=== PATIENT | male | born 1960 | race Caucasian/White ===

== ENCOUNTER 2017-04-05 14:20 | Inpatient (IN) ==
--- NOTE | 2017-04-05 15:08 | Emergency Department Note ---
Disposition Clinical Impression: Iron deficiency, Thrombocytopenia, Hyperglycemia Fatigue Qualifiers: Fatigue type: unspecified Qualified Code(s): R53.83 - Other fatigue Anemia Qualifiers: Anemia type: unspecified type Qualified Code(s): D64.9 - Anemia, unspecified Disposition: Admitted As Inpatient Condition: Fair Referrals: Bin Morales MD [Primary Care Provider] - Forms: ED Satisfaction Letter General Adult HPI - General Chief complaint: ED Recheck/Abnormal Lab/Rx Stated complaint: Low hemoglobin Time Seen by Provider: 04/05/17 14:39 Source: patient Limitations: no limitations, language barrier Nursing Notes Reviewed: Yes Vital Signs Reviewed: Yes - History of Present Illness HPI Narrative: 57 y/o male who reports fatigue over the last 1-2 weeks. Went to see his PCP today who yazmin labwork and sent him here due to low hemoglobin. He has a history of esophageal varices requiring a clip a couple of months ago up at [place]. He admits to dark stools which have worsened significantly over the last 2 days. No gross blood in his stool. He says he might be on a blood thinner but does not know for sure. He was unfamiliar with the blood thinners I listed. His outpatient clinic notes do not mention a blood thinner. Other medical problems include liver cirrhosis and HTN and DM. Denies fever. Denies CP/abd pain. He reports drinking up to half a gallon of vodka daily. Radiation: non-radiation Pain Scale: 0 Consistency: constant Improves with: nothing Worsens with: nothing Associated symptoms: Reports: denies other symptoms Treatments Prior to Arrival: none - Related Data Home Medications Medication Instructions Recorded Confirmed Buspirone HCl [Buspar] 15 mg PO DAILY 09/15/15 12/29/15 Cyclobenzaprine HCl 5 mg PO BID 09/15/15 12/29/15 Gabapentin [Neurontin] 300 mg PO TID 09/15/15 12/29/15 Insulin Glargine,Hum.rec.anlog 60 units SQ BID 09/15/15 12/29/15 [[place] Solostar] Lisinopril [Zestril] 40 mg PO BID 09/15/15 12/29/15 Multivitamin [Multi-Day Vitamins] 1 tab PO DAILY 09/15/15 12/29/15 Omeprazole 20 mg PO DAILY 09/15/15 12/29/15 Simvastatin [Zocor] 20 mg PO HS 09/15/15 12/29/15 amLODIPine [Norvasc] 5 mg PO DAILY 09/15/15 12/29/15 Isosorbide MONOnitrate (24 HR) 15 mg PO DAILY 12/29/15 12/29/15 [Imdur] Metoprolol XL (24 HR) Succ [Toprol 25 mg PO BID 12/29/15 12/29/15 XL] Furosemide [Lasix] 40 mg PO DAILY 04/05/17 04/05/17 Insulin Glargine [Lantus] 75 unit SQ HS 04/05/17 04/05/17 Allergies Allergy/AdvReac Type Severity Reaction Status Date / Time No Known Allergies Allergy Verified 04/05/17 14:25 All systems ED: reviewed and negative except as stated. Constitutional: Denies: fever ENT ED: Denies: throat pain Cardiovascular: Denies: chest pain Respiratory: Denies: cough Gastrointestinal: Denies: abdominal pain Musculoskeletal: Denies: back pain Integumentary: Denies: rash Neurological: Denies: headache Endocrine: Reports: fatigue Past Medical History - Past Medical History Medical history: Reports: cirrhosis, diabetes, GERD, hyperlipidemia, hypertension, liver disease Surgical history: Reports: cholecystectomy, orthopedic, other Psychiatric history: Reports: anxiety, depression - Social History Smoking Status: Never smoker Smokeless Tobacco Status: Yes (occasionally) Alcohol use: Reports: occasionally, heavy Drug use: Reports: none Physical Exam - General Limitations: no limitations, language barrier General appearance: alert, in no apparent distress - Head Head exam: atraumatic - Eye Eye exam: Present: normal appearance, PERRL - ENT ENT exam: normal exam, normal oropharynx - Neck Neck exam: Present: normal inspection - Chest Chest inspection: Present: normal inspection - Respiratory Respiratory exam: Present: normal lung sounds bilaterally. Absent: respiratory distress - Cardiovascular Cardiovascular exam: Present: regular rate, normal rhythm - Abdominal Exam Abdominal exam: Present: soft, Non-Tender - Extremities Exam Extremities exam: Present: normal inspection - Neurological Exam Neurological exam: Present: alert, oriented X3 - Psychiatric Psychiatric exam: Present: normal affect, normal mood - Skin Skin exam: Present: warm, dry Course Course Narrative: Rectal exam had no stool in the rectal vault. Nontender. No gross blood on exam. Will recheck labs. Vitals are stable. Stool occult is negative. May still be due to GI bleed as there was no stool in the vault to check. Minimal substance on glove after rectal exam. No evidence of DKA. Vitals are stable. Starting blood transfusion. Starting insulin drip due to marked hyperglycemia. Spoke with endoscopy (Dr Moreira) who agreed to see the patient. Vital Signs Temperature 98.0 F 04/05/17 14:22 Pulse Rate 93 04/05/17 14:22 Respiratory Rate 16 04/05/17 14:22 Blood Pressure 135/73 04/05/17 14:22 O2 Sat by Pulse Oximetry 95 04/05/17 14:22 Temperature 98.0 F 04/05/17 14:22 Pulse Rate 80 04/05/17 15:21 Respiratory Rate 16 04/05/17 15:21 Blood Pressure 101/62 04/05/17 15:21 O2 Sat by Pulse Oximetry 99 04/05/17 15:21 Oxygen Delivery Oxygen Delivery Room Air Medical Decision Making - Medical Records Medical records reviewed: Yes I reviewed the patient's medical records. - Lab Data Lab results reviewed: Yes I reviewed the patient's lab results. Result diagrams: 04/05/17 15:13 04/05/17 15:13 Lab Results 04/05/17 04/05/17 04/05/17 Range/Units 15:13 15:13 15:13 WBC 3.3 L (4.3-11.1) K/mcL RBC 2.15 L (4.19-5.50) M/mcL Hgb 5.9 L* (12.9-16.9) g/dL Hct 18.4 L (37.5-50.1) % MCV 85.6 (83.0-100.0) fL MCH 27.4 L (28.0-33.3) pg MCHC 32.1 (31.6-35.5) g/dL RDW 18.4 H (11.5-14.5) % Plt Count 67 L (140-400) K/mcL MPV 12.4 (9.4-12.4) fL Immature Gran % 0.3 (0-4) % Seg Neutrophils % 62.2 % Lymphocytes % 24.8 % Monocytes % 11.5 % Eosinophils % 0.9 % Basophils % 0.3 % Neutrophils # 2.1 (1.6-8.9) K/mcL Lymphocytes # 0.8 (0.6-4.6) K/mcL Monocytes # 0.4 (0.0-1.3) K/mcL Eosinophils # 0.0 (0.0-0.6) K/mcL Basophils # 0.0 (0.0-0.2) K/mcL Platelet Estimate Marked Decrease L (Normal) Immature Plt Fraction 8.8 H (1.1-6.1) % Hypochromasia Present A (Not Present) Anisocytosis 1+ A (Not Present) PT 13.7 H (9.4-12.1) Seconds INR 1.3 APTT 28.9 (26.0-36.0) Seconds VBG pH (7.32-7.42) pH Units VBG pCO2 (41-51) mmHg VBG pO2 (25-50) mmHg VBG HCO3 (21-27) mEq/L Sodium 126 L (136-145) mEq/L Potassium 4.9 H (3.5-4.5) mEq/L Chloride 96 L (98-109) mEq/L Carbon Dioxide 20 (19-29) mEq/L BUN 27 H (8-26) mg/dL Creatinine 1.76 H (0.72-1.25) mg/dL Est GFR ( Amer) 48 L (> 60) Est GFR (Non-Af Amer) 40 L (> 60) BUN/Creatinine Ratio 15 (6-26) Glucose 735 H* (70-99) mg/dL Calculated Osmolality 302 H (280-300) Calcium 8.3 L (8.6-10.8) mg/dL Total Bilirubin 0.7 (0.2-1.2) mg/dL Direct Bilirubin 0.3 (0.0-0.5) mg/dL Indirect Bilirubin 0.4 (0.0-1.2) mg/dL AST 24 (5-34) Units/L ALT 41 (0-55) Units/L Alkaline Phosphatase 264 H (38-126) Units/L Troponin I (0-0.03) ng/mL Serum Total Protein 6.3 (6.0-8.3) g/dL Albumin 2.4 L (3.5-5.0) g/dL Globulin 3.9 H (2.4-3.5) g/dL Albumin/Globulin Ratio 0.6 L (1.1-2.2) Beta-Hydroxybutyric Acd (0.02-0.27) mmol/L Stool Occult Blood (Negative) Ethyl Alcohol (0-10) mg/dL Blood Type Antibody Screen Crossmatch 04/05/17 04/05/17 04/05/17 Range/Units 15:13 15:13 15:42 WBC (4.3-11.1) K/mcL RBC (4.19-5.50) M/mcL Hgb (12.9-16.9) g/dL Hct (37.5-50.1) % MCV (83.0-100.0) fL MCH (28.0-33.3) pg MCHC (31.6-35.5) g/dL RDW (11.5-14.5) % Plt Count (140-400) K/mcL MPV (9.4-12.4) fL Immature Gran % (0-4) % Seg Neutrophils % % Lymphocytes % % Monocytes % % Eosinophils % % Basophils % % Neutrophils # (1.6-8.9) K/mcL Lymphocytes # (0.6-4.6) K/mcL Monocytes # (0.0-1.3) K/mcL Eosinophils # (0.0-0.6) K/mcL Basophils # (0.0-0.2) K/mcL Platelet Estimate (Normal) Immature Plt Fraction (1.1-6.1) % Hypochromasia (Not Present) Anisocytosis (Not Present) PT (9.4-12.1) Seconds INR APTT (26.0-36.0) Seconds VBG pH (7.32-7.42) pH Units VBG pCO2 (41-51) mmHg VBG pO2 (25-50) mmHg VBG HCO3 (21-27) mEq/L Sodium (136-145) mEq/L Potassium (3.5-4.5) mEq/L Chloride (98-109) mEq/L Carbon Dioxide (19-29) mEq/L BUN (8-26) mg/dL Creatinine (0.72-1.25) mg/dL Est GFR ( Amer) (> 60) Est GFR (Non-Af Amer) (> 60) BUN/Creatinine Ratio (6-26) Glucose (70-99) mg/dL Calculated Osmolality (280-300) Calcium (8.6-10.8) mg/dL Total Bilirubin (0.2-1.2) mg/dL Direct Bilirubin (0.0-0.5) mg/dL Indirect Bilirubin (0.0-1.2) mg/dL AST (5-34) Units/L ALT (0-55) Units/L Alkaline Phosphatase (38-126) Units/L Troponin I 0.03 (0-0.03) ng/mL Serum Total Protein (6.0-8.3) g/dL Albumin (3.5-5.0) g/dL Globulin (2.4-3.5) g/dL Albumin/Globulin Ratio (1.1-2.2) Beta-Hydroxybutyric Acd (0.02-0.27) mmol/L Stool Occult Blood Negative (Negative) Ethyl Alcohol (0-10) mg/dL Blood Type O POSITIVE Antibody Screen NEGATIVE Crossmatch See Detail 04/05/17 04/05/17 Range/Units 16:06 16:21 WBC (4.3-11.1) K/mcL RBC (4.19-5.50) M/mcL Hgb (12.9-16.9) g/dL Hct (37.5-50.1) % MCV (83.0-100.0) fL MCH (28.0-33.3) pg MCHC (31.6-35.5) g/dL RDW (11.5-14.5) % Plt Count (140-400) K/mcL MPV (9.4-12.4) fL Immature Gran % (0-4) % Seg Neutrophils % % Lymphocytes % % Monocytes % % Eosinophils % % Basophils % % Neutrophils # (1.6-8.9) K/mcL Lymphocytes # (0.6-4.6) K/mcL Monocytes # (0.0-1.3) K/mcL Eosinophils # (0.0-0.6) K/mcL Basophils # (0.0-0.2) K/mcL Platelet Estimate (Normal) Immature Plt Fraction (1.1-6.1) % Hypochromasia (Not Present) Anisocytosis (Not Present) PT (9.4-12.1) Seconds INR APTT (26.0-36.0) Seconds VBG pH 7.38 (7.32-7.42) pH Units VBG pCO2 41 (41-51) mmHg VBG pO2 52 H (25-50) mmHg VBG HCO3 24 (21-27) mEq/L Sodium (136-145) mEq/L Potassium (3.5-4.5) mEq/L Chloride (98-109) mEq/L Carbon Dioxide (19-29) mEq/L BUN (8-26) mg/dL Creatinine (0.72-1.25) mg/dL Est GFR ( Amer) (> 60) Est GFR (Non-Af Amer) (> 60) BUN/Creatinine Ratio (6-26) Glucose (70-99) mg/dL Calculated Osmolality (280-300) Calcium (8.6-10.8) mg/dL Total Bilirubin (0.2-1.2) mg/dL Direct Bilirubin (0.0-0.5) mg/dL Indirect Bilirubin (0.0-1.2) mg/dL AST (5-34) Units/L ALT (0-55) Units/L Alkaline Phosphatase (38-126) Units/L Troponin I (0-0.03) ng/mL Serum Total Protein (6.0-8.3) g/dL Albumin (3.5-5.0) g/dL Globulin (2.4-3.5) g/dL Albumin/Globulin Ratio (1.1-2.2) Beta-Hydroxybutyric Acd 0.20 (0.02-0.27) mmol/L Stool Occult Blood (Negative) Ethyl Alcohol < 10 (0-10) mg/dL Blood Type Antibody Screen Crossmatch - EKG Data EKG #1 EKG attestation: Yes I reviewed and interpreted this EKG. EKG shows normal: sinus rhythm Rate: normal Rhythm: NSR [place]/QRS: left axis deviation When compared to previous EKG there are: no significant changes Interpretation: no acute changes
[2017-04-05 15:21] LABS: Basophils % 0.3 %; Eosinophils % 0.9 %; Hematocrit 18.4 % (37.5-50.1); Immature Granulocytes % 0.3 % (0-4); Immature Platelets 8.8 % (1.1-6.1); Lymphocytes # 0.8 K/mcL (0.6-4.6); Lymphocytes % 24.8 %; Mean Corpuscular HGB Conc 32.1 g/dL (31.6-35.5); Mean Corpuscular Hemoglobin 27.4 pg (28.0-33.3); Mean Corpuscular Volume 85.6 fL (83.0-100.0); Mean Platelet Volume 12.4 fL (9.4-12.4); Monocytes # 0.4 K/mcL (0.0-1.3); Monocytes % 11.5 %; Neutrophils # 2.1 K/mcL (1.6-8.9); Red Blood Count 2.15 M/mcL (4.19-5.50); Red Cell Distribution Width 18.4 % (11.5-14.5); Segmented Neutrophils % 62.2 %
[2017-04-05 15:25] LABS: INR 1.3; Prothrombin Time 13.7 Seconds (9.4-12.1)
[2017-04-05 15:28] LABS: Activated Partial Thrombo Time 28.9 Seconds (26.0-36.0)
[2017-04-05 15:33] LABS: Albumin 2.4 g/dL (3.5-5.0); Albumin/Globulin Ratio 0.6 (1.1-2.2); Bilirubin,Direct 0.3 mg/dL (0.0-0.5); Bilirubin,Indirect 0.4 mg/dL (0.0-1.2); Bilirubin,Total 0.7 mg/dL (0.2-1.2); Calcium 8.3 mg/dL (8.6-10.8); Globulin 3.9 g/dL (2.4-3.5); Potassium 4.9 mEq/L (3.5-4.5); Total Protein 6.3 g/dL (6.0-8.3)
[2017-04-05] MEDS ORDERED: 0.9 % Sodium Chloride 1,000 ML IVC ONE (15:39)
[2017-04-05] MEDS: Iron Polysaccharide Complex 150 MG CAPSULE PO SCH (15:45)
[2017-04-05] MEDS ORDERED: *HR* Dextrose 50 % in Water (Syg) 50 ML SYRINGE IVP PRN (15:55)
[2017-04-05] MEDS ORDERED: Pantoprazole 80 MG in Water for inj. (sterile) 10 ML IVP ONE (15:57)
[2017-04-05 15:58] LABS: Hemoglobin 5.9 g/dL (12.9-16.9)
[2017-04-05 15:59] LABS: Platelet Count 67 K/mcL (140-400)
[2017-04-05] MEDS ORDERED: 0.9 % Sodium Chloride 1,000 ML IVC SCH (16:00)
[2017-04-05 16:01] LABS: Platelet Estimate Marked Decrease (Normal)
[2017-04-05 16:02] LABS: Anisocytosis 1+ (Not Present); Hypochromasia Present (Not Present)
--- NOTE | 2017-04-05 16:02 | Emergency Department Note ---
START Narrative - START START: I examined this patient and my medical decision-making was reviewed with the Resident Physician. I agree with the documented findings, disposition and treatment plan as described except to the extent set forth below. 57-year-old male presents to the emergency room for weakness, melena. Patient' s sugar was found to be greater than 700. He states his stools have been intermittently dark in color. He has a history of esophageal varices. He has a known drinker that drinks about twice per week. He said a previous clipping or banding of these esophageal varices in the past at [place]. He denies any significant abdominal pain. He states he just feels weak. He denies any alcohol today. Patient will be started on insulin drip and IV fluids for the elevated sugar as well. Critical care time of 35 minutes spent in medical resuscitation and management of GI bleed as well as hyperglycemia requiring insulin drip
[2017-04-05 16:24] LABS: VBG HCO3 24 mEq/L (21-27); VBG PCO2 41 mmHg (41-51); VBG PH 7.38 pH Units (7.32-7.42); VBG PO2 52 mmHg (25-50)
[2017-04-05 16:40] LABS: Ethanol < 10 mg/dL (0-10)
[2017-04-05] MEDS ORDERED: 0.9 % Sodium Chloride 250 ML ONE (17:07)
[2017-04-05] MEDS ORDERED: Polyethylene Glycol 3350 255 GM POWDER PO ONE (17:35)
--- NOTE | 2017-04-05 18:39 | General Surgery Consult Note ---
Date of Encounter: 04/05/17 Time of Encounter: 18:29 Assessment and Plan (1) Lower GI bleed Current Visit: Yes Status: Acute unknow if from UGI or LGI source. Patient does have a history of varices, grade I and also has a history of endoscopic control of bleeding; He may also have another source (gastritis, PUD) or a LGI source (diverticulosis, angiodysplasia, polyps) - CLD, NPO at midnight - bowel prep - resuscitate - trend h/h - transfuse as needed - will plan for EGD, colonoscopy in AM History of Present Illness Consult date: 04/05/17 Reason for consult: other (lower GI bleeding) History of present illness: 57M with known EtOH history (1 gallon of vodka per week) with prior episodes of LGIB most recent was ~ 6-12 months ago where he did undergo endoscopic treatment for bleeding, likely of varices. He presents with weakness, lightheadedness and anemia on h/h. The patient states that he has been having lower GI bleeding for about 2 weeks. His last episode was one day prior to evaluation. Due to the severity of his h/h he came to the ED for evaluation. Of note his last colonoscopy was about 2 years ago. patient states that there were polyps which were removed, but no other concerning findings. No reports of hematemesis. Past Med Surg Social Fam HX - Past Medical History Medical history: cirrhosis, diabetes, GERD, hyperlipidemia, hypertension, liver disease Psychiatric history: anxiety, depression - Past Surgical History Surgical History: cholecystectomy, orthopedic, other - Social History Smoking Status: Never smoker Smokeless Tobacco Status: Yes (occasionally) Alcohol use: occasionally, heavy Drug use: none - Family History Father Living Status: Hx Family Cardiac Disorders: Yes (hypertension) Mother Living Status: Medications and Allergies Buspirone HCl [Buspar] 15 mg PO DAILY 09/15/15 [History] Cyclobenzaprine HCl 5 mg PO BID 09/15/15 [History] Gabapentin [Neurontin] 300 mg PO DAILY 09/15/15 [History] Insulin Glargine,Hum.rec.anlog [[place] Solostar] 30 units SQ BID 09/15/15 [ History] Lisinopril [Zestril] 40 mg PO BID 09/15/15 [History] Multivitamin [Multi-Day Vitamins] 1 tab PO DAILY 09/15/15 [History] Omeprazole 20 mg PO DAILY 09/15/15 [History] Simvastatin [Zocor] 20 mg PO HS 09/15/15 [History] amLODIPine [Norvasc] 5 mg PO DAILY 09/15/15 [History] Isosorbide MONOnitrate (24 HR) [Imdur] 15 mg PO DAILY 12/29/15 [History] Metoprolol XL (24 HR) Succ [Toprol XL] 25 mg PO BID 12/29/15 [History] Furosemide [Lasix] 40 mg PO DAILY 04/05/17 [History] Insulin Glargine [Lantus] 75 unit SQ HS 04/05/17 [History] 3 Allergy/AdvReac Type Severity Reaction Status Date / Time No Known Allergies Allergy Verified 04/05/17 14:25 Review of Systems All systems PM: A 10-system review of systems was performed and is negative for pertinent findings except as documented above in the HPI. General Surgery Exam Initial Vital Signs Temp Pulse Resp BP Pulse Ox 98.0 F 93 16 135/73 95 04/05/17 14:22 04/05/17 14:22 04/05/17 14:22 04/05/17 14:22 04/05/17 14:22 - General physical appearance well developed, well nourished, no distress - Eyes normal ocular movement - ENT normocephalic - Neck no lymphadectomy - Respiratory normal expansion, normal respiratory effort - Cardiovascular Cardiovascular exam: Present: RRR - Abdomen Abdomen general surgery: Present: soft, non tender - Rectum Rectum: Present: normal sphincter tone, no bleeding - Integumentary Integumentary general surgery: Present: warm and dry - Neurologic Present: CN 2-12 grossly intact - Musculoskeletal Present: other (FROM in UE/LE bilaterally) - Psychiatric Psychiatric general surgery: Present: A&Ox3 Exam Initial Vital Signs Temp Pulse Resp BP Pulse Ox 98.0 F 93 16 135/73 95 04/05/17 14:22 04/05/17 14:22 04/05/17 14:22 04/05/17 14:22 04/05/17 14:22 Results - Labs 04/05/17 15:13 04/05/17 15:13 Abnormal lab results WBC 3.3 K/mcL (4.3-11.1) L 04/05/17 15:13 RBC 2.15 M/mcL (4.19-5.50) L 04/05/17 15:13 Hgb 5.9 g/dL (12.9-16.9) L* 04/05/17 15:13 Hct 18.4 % (37.5-50.1) L 04/05/17 15:13 MCH 27.4 pg (28.0-33.3) L 04/05/17 15:13 RDW 18.4 % (11.5-14.5) H 04/05/17 15:13 Plt Count 67 K/mcL (140-400) L 04/05/17 15:13 Platelet Estimate Marked Decrease (Normal) L 04/05/17 15:13 Immature Plt Fraction 8.8 % (1.1-6.1) H 04/05/17 15:13 Hypochromasia Present (Not Present) A 04/05/17 15:13 Anisocytosis 1+ (Not Present) A 04/05/17 15:13 PT 13.7 Seconds (9.4-12.1) H 04/05/17 15:13 VBG pO2 52 mmHg (25-50) H 04/05/17 16:21 Sodium 126 mEq/L (136-145) L 04/05/17 15:13 Potassium 4.9 mEq/L (3.5-4.5) H 04/05/17 15:13 Chloride 96 mEq/L (98-109) L 04/05/17 15:13 BUN 27 mg/dL (8-26) H 04/05/17 15:13 Creatinine 1.76 mg/dL (0.72-1.25) H 04/05/17 15:13 Est GFR ( Amer) 48 (> 60) L 04/05/17 15:13 Est GFR (Non-Af Amer) 40 (> 60) L 04/05/17 15:13 Glucose 735 mg/dL (70-99) H* 04/05/17 15:13 Calculated Osmolality 302 (280-300) H 04/05/17 15:13 Calcium 8.3 mg/dL (8.6-10.8) L 04/05/17 15:13 Alkaline Phosphatase 264 Units/L (38-126) H 04/05/17 15:13 Albumin 2.4 g/dL (3.5-5.0) L 04/05/17 15:13 Globulin 3.9 g/dL (2.4-3.5) H 04/05/17 15:13 Albumin/Globulin Ratio 0.6 (1.1-2.2) L 04/05/17 15:13 All other labs normal. Consult Discharge Plan - Plan Referrals: Bin Morales MD [Primary Care Provider] -
[2017-04-05] MEDS: Pantoprazole 80 MG in 0.9 % Sodium Chloride 250 ML IVC SCH (18:47)
[2017-04-05] MEDS: Insulin Human Regular 100 UNIT in 0.9 % Sodium Chloride 100 ML IVC SCH (18:51)
[2017-04-05] MEDS ORDERED: Ondansetron 4 MG/2 ML VIAL IVP PRN (19:55)
[2017-04-05] MEDS ORDERED: Acetaminophen 325 MG TABLET PO PRN (19:55)
[2017-04-05] MEDS ORDERED: Naloxone 0.4 MG/ML INJ IVP PRN (19:55)
[2017-04-05] MEDS ORDERED: *HR* LORazepam 2 MG/ML VIAL IVP PRN ×3 (20:02)
[2017-04-05] MEDS ORDERED: Furosemide 20 MG/2 ML VIAL IVP ONE (20:50)
[2017-04-05] MEDS: Thiamine (B-1) 100 MG, Folic Acid 1 MG, MVI, adult with vitamin K 10 ML in 0.9 % Sodi... IVPB SCH (21:08)
[2017-04-05] MEDS: Metoprolol XL (24 HR) Succ 25 MG TAB.ER.24H PO SCH (21:10)
--- NOTE | 2017-04-05 21:11 | Internal Med History&Physical ---
<Jaz Langston - Last Filed: 04/05/17 21:37> Date of Encounter: 04/05/17 Time of Encounter: 21:10 Assessment and Plan (1) Lower GI bleed Current visit: Yes Status: Acute 1 patient has hx of GI bleed and varices in the past. approx 6 mos ago varices banded at [facility] . Has been experiencing black stools over the past 2 days. Occult Stool was negative Surgery was consulted and patient will be nothing by mouth after midnight for EGD in a.m. and will receive bowel prep for colonoscopy Continue Protonix. Transfuse 2 units of PRBCs-monitor H&H (2) Paroxysmal A-fib Current visit: Yes Status: Acute presently in SR with controlled rate, continue with metoprolol, He is not on any anticoagulation dt hx of cirrhosis-GI bleeding (3) DVT prophylaxis Current visit: No Status: Acute SCD- dt GI bleeding (4) Thrombocytopenia Current visit: No Status: Chronic presently 67- this appears to be chronic- secondary to cirrhosis will continue to monitor (5) Hyperglycemia Current visit: Yes Status: Acute patient has not been compliant with insulin at home - BS >700 on presentation. No DKA- will continue with insulin gtt monitor electrolytes contiue with IV fluids (6) Anemia Current visit: Yes Status: Acute Percent with hemoglobin 5.0 - blood loss from GI BLeed history of previous GI bleed has been experiencing melenic stools were occult stools negative. will undergo upper and lower scope tomorrow per surgery transfuse 2 unit PRBC monitor H/H Qualifiers: Anemia type: unspecified type Qualified Code(s): D64.9 - Anemia, unspecified Internal Medicine - H&P: HPI Chief complaint: low Hgb Admitted From: Emergency Dept Plans for Post Hospital Care: Home History of present illness: Mr. Mejia is a 57 year old male past medical history diabetes type 2 hypertension hyperlipidemia paroxysmal atrial fibrillation cirrhosis alcohol abuse diastolic heart failure esophageal varices grade 1. According to the patient with past couple weeks has been experiencing increasing fatigue. He has been experiencing dark stools over the past 2 days. He denies any gross blood or hematemesis He did see his PCP today to labwork to the ER. 2 low. He does have a prior history of GI bleed most recent approximate 6 months ago when he underwent endoscopic treatment for bleeding varices with banding at [facility]. He denies any use of blood thinners. He presented to the ER records on presentation patient was 5.9 platelets were 67. Also had elevated blood sugar 700 -does not appear to be in DKA pH 7.38. His stool occult negative. He was typed and screened for 2 units and transfused. Surgery was consulted and has been admitted for further evaluation. Presently patient is hemodynamically stable at this time there aresymptoms of active bleeding. I did review this case with Dr Edgar who agrees with plan Past Med Surg Social Fam HX - Past Medical History Medical history: atrial fibrillation, cirrhosis, diabetes, GERD, hyperlipidemia , hypertension, liver disease Psychiatric history: anxiety, depression - Past Surgical History Surgical History: cholecystectomy, orthopedic, other - Social History Smoking Status: Never smoker Smokeless Tobacco Status: Yes (occasionally) Alcohol use: occasionally, heavy Drug use: none - Family History Father Living Status: Hx Family Cardiac Disorders: Yes Mother Living Status: Internal Medicine - H&P: Meds Buspirone HCl [Buspar] 15 mg PO DAILY 09/15/15 [History] Cyclobenzaprine HCl 5 mg PO BID 09/15/15 [History] Gabapentin [Neurontin] 300 mg PO DAILY 09/15/15 [History] Insulin Glargine,Hum.rec.anlog [Toujeo Solostar] 30 units SQ BID 09/15/15 [ History] Lisinopril [Zestril] 40 mg PO BID 09/15/15 [History] Multivitamin [Multi-Day Vitamins] 1 tab PO DAILY 09/15/15 [History] Omeprazole 20 mg PO DAILY 09/15/15 [History] Simvastatin [Zocor] 20 mg PO HS 09/15/15 [History] amLODIPine [Norvasc] 5 mg PO DAILY 09/15/15 [History] Isosorbide MONOnitrate (24 HR) [Imdur] 15 mg PO DAILY 12/29/15 [History] Metoprolol XL (24 HR) Succ [Toprol XL] 25 mg PO BID 12/29/15 [History] Furosemide [Lasix] 40 mg PO DAILY 04/05/17 [History] Insulin Glargine [Lantus] 75 unit SQ HS 04/05/17 [History] 3 Allergy/AdvReac Type Severity Reaction Status Date / Time No Known Allergies Allergy Verified 04/05/17 14:25 All Systems PM: A 10-system review of systems was performed and is negative for pertinent findings except as documented above in the HPI. - Constitutional Constitutional: fatigue, no chills, no fever(s), no night sweats - EENT Eyes: no change in vision, no discharge, no pain, no photophobia Nose, mouth and throat: no dysphagia, no nasal discharge, no neck pain, no sore throat - Cardiovascular Cardiovascular ROS IM: no chest pain, no diaphoresis, no dyspnea, no lightheadedness, no palpitations, no syncope - Respiratory Respiratory: no cough, no dyspnea, no wheezing, no excessive phlegm production - Gastrointestinal Gastrointestinal: melena, no abdominal pain, no diarrhea, no hematemesis, no hematochezia, no nausea, no vomiting - Musculoskeletal Musculoskeletal ROS IM: no numbness, no tingling - Integumentary Integumentary IM: no rash, no unusual bruising - Neurological Neurological ROS: no confusion, no convulsions, no focal weakness, no numbness, no tingling, no tremor(s) - Hematologic/Lymphatic Hematologic/Lymphatic: easy bruising - Constitutional Vitals: Temp Pulse Resp BP Pulse Ox 98.2 F 80 18 160/65 97 04/05/17 20:30 04/05/17 20:30 04/05/17 20:30 04/05/17 20:30 04/05/17 20:30 General appearance: Present: A&O X 3 - Head Head exam: Present: atraumatic, normocephalic - Eye Eye exam: Present: PERRL, conjuntiva pink, sclera anicteric Pupils: Present: PERRL - Neck Neck exam general surgery: Present: supple, trachea midline. Absent: lymphadenopathy - Respiratory Respiratory exam: Present: CTAB. Absent: accessory muscle use, rales, rhonchi, wheezes - Cardiovascular Cardiovascular exam: Present: RRR, +S1, +S2. Absent: diastolic murmur, gallop, rubs, systolic murmur - GI/Abdominal GI/Abdominal exam: Present: distended, normal bowel sounds, soft, no peritoneal signs. Absent: tenderness - Neurological Exam Neurological exam: Present: CN II-XII intact, oriented X3, no focal deficits. Absent: pronater drift, facial droop, speech deficit - Skin Skin exam: Present: dry, intact Internal Med - H&P Results - Labs CBC & Chem 7: 04/05/17 15:13 04/05/17 21:10 <Cedrick Edgar - Last Filed: 04/06/17 03:44> Date of Encounter: 04/05/17 Internal Medicine - H&P: HPI History of present illness: Mr. Mejia is a 57 year old male All Systems PM: A 10-system review of systems was performed and is negative for pertinent findings except as documented above in the HPI. - Constitutional Vitals: Temp Pulse Resp BP Pulse Ox 98.8 F 65 18 124/83 99 04/06/17 03:05 04/06/17 03:05 04/06/17 03:05 04/06/17 03:05 04/06/17 03:05 Internal Med - H&P Results - Labs CBC & Chem 7: 04/05/17 15:13 04/05/17 21:10 Labs: BMP 04/05/17 21:10 Sodium 132 L Potassium 4.4 Chloride 103 Carbon Dioxide 15 L BUN 23 Creatinine 1.50 H Glucose 356 H Calcium 8.5 L Cardiac Enzymes 04/05/17 Range/Units 21:10 Troponin I 0.03 (0-0.03) ng/mL - Attending Attestation Patient was seen Dec , I personally seen and examined the patient and discuss with FINAL TOUCH UP PAINTER. Chest clear to auscultation percussion wheezing rales in the abdomen soft nontender no organomegaly was on active extremities no edema neuro nonfocal. Patient has history of alcohol however he has been sober for 2 months now. He has history of further alcoholic cirrhosis/upper GI bleed status post band procedure few months ago. Since then he has been stable but recently noticed melena and hemoglobin noted to be 5.9. Rectal examination in ER is negative for blood. He will be admitted for transfusion and gastroenterology or surgery can be consulted for possible EGD. His cardiac EF was 35% in the past therefore we will hydrate him gently however it was noted that his blood sugars were more than 700 and he seems to have intravascular hypovolemia. His sodium is 126 which could be pseudohyponatremia versus secondary to dehydration due to diuretics which he takes for his ascites. Reorder labs.
[2017-04-05 21:32] LABS: Calcium 8.5 mg/dL (8.6-10.8)
[2017-04-05 21:34] LABS: Potassium 4.4 mEq/L (3.5-4.5)
[2017-04-06 04:54] LABS: Basophils % 0.7 %; Mean Corpuscular Hemoglobin 27.9 pg (28.0-33.3)
[2017-04-06 04:56] LABS: Eosinophils % 1.1 %; Hematocrit 27.7 % (37.5-50.1); Hemoglobin 8.3 g/dL (12.9-16.9); Immature Granulocytes % 0.7 % (0-4); Immature Platelets 6.3 % (1.1-6.1); Lymphocytes # 0.9 K/mcL (0.6-4.6); Lymphocytes % 33.5 %; Mean Corpuscular Volume 93.3 fL (83.0-100.0); Mean Platelet Volume 12.7 fL (9.4-12.4); Monocytes # 0.4 K/mcL (0.0-1.3); Monocytes % 15.3 %; Neutrophils # 1.4 K/mcL (1.6-8.9); Nucleated Red Blood Cells 0.7 /100 WBC (0); Red Blood Count 2.97 M/mcL (4.19-5.50); Red Cell Distribution Width 18.1 % (11.5-14.5); Segmented Neutrophils % 48.7 %
[2017-04-06 04:57] LABS: Platelet Count 61 K/mcL (140-400)
[2017-04-06 05:00] LABS: BUN/Creatinine Ratio 16 (6-26); Blood Urea Nitrogen 21 mg/dL (8-26); Calcium 8.3 mg/dL (8.6-10.8); Carbon Dioxide 16 mEq/L (19-29); Chloride 103 mEq/L (98-109); Glucose 347 mg/dL (70-99); Osmolality,Calculated 289 (280-300); Sodium 131 mEq/L (136-145); eGFR For African Americans > 60 (> 60); eGFR For Non-African Americans 56 (> 60)
[2017-04-06 05:03] LABS: Potassium 4.6 mEq/L (3.5-4.5)
[2017-04-06] MEDS: 0.9 % Sodium Chloride 1,000 ML IVC SCH ×2 (05:27→18:37)
[2017-04-06] MEDS: Pantoprazole 80 MG in 0.9 % Sodium Chloride 250 ML IVC SCH (05:28)
[2017-04-06 05:29] LABS: Anisocytosis 1+ (Not Present); Hypochromasia Present (Not Present); Platelet Estimate Decreased (Normal)
[2017-04-06 05:30] LABS: Microcytosis Present (Not Present)
[2017-04-06] MEDS ORDERED: Dextrose Gel 15 GM PO PRN ×2 (05:46)
[2017-04-06] MEDS ORDERED: D5% in Water 1,000 ML IVC PRN (05:46)
[2017-04-06] MEDS: Insulin LISPRO 300 UNITS/3 ML VIAL SQ SCH ×3 (05:59→18:42)
--- NOTE | 2017-04-06 08:17 | General Surgery Progress Note ---
Date of Encounter: 04/06/17 Time of Encounter: 08:16 - Assessment and Plan (1) Lower GI bleed Current Visit: Yes Status: Acute unknow if from UGI or LGI source. Patient does have a history of varices, grade I and also has a history of endoscopic control of bleeding; He may also have another source (gastritis, PUD) or a LGI source (diverticulosis, angiodysplasia, polyps); responded appropriately to transfusions - keep NPO - plan for EGD, colonoscopy today - IVF - diet after procedure Subjective Patient reports: no new complaints, feels better Objective Vital Signs - Last 8 Hours Temp Pulse Resp BP Pulse Ox 04/06/17 07:19 98 F 70 14 148/72 100 04/06/17 03:05 98.8 F 65 18 124/83 99 Intake and Output 04/05/17 04/06/17 04/06/17 23:59 07:59 15:59 Intake Total 651 / 976 550 / 550 Output Total 400 / 400 1500 / 1500 Balance 251 / 576 -950 / -950 Intake: IV Fluids 250 / 250 HumuLIN R 100 UNIT In 0.9 % Sodium Chloride 100 ML @ 0.1 UNIT/KG/HR 9.8 mls/hr IVC CONT YANG Rx#:[id number] Protonix 80 MG In 0.9 % Sodium 250 / 250 Chloride 250 ML @ 25 mls/hr IVC .Q10H YANG Rx#:[id number] Blood Product 620 / 945 300 / 300 Rbcs Leuko Poor As-1 Unit 320 / 320 300 / 300 [id number] Rbcs Leuko Poor As-1 Unit 300 / 625 [id number] Output: Urine 400 / 400 400 / 400 Stool 1100 / 1100 Other: Stool Size Small Stool Consistency liquid Stool Color Adalberto Colored Zuniga # Bowel Movements 1 Weight 103 kg Blood Glucose* 246 375 - General physical appearance well developed, well nourished, no distress - Respiratory normal expansion - Cardiovascular Cardiovascular exam: Present: RRR - Abdomen Abdomen: Present: soft, non tender - Neurologic CN 2-12 grossly intact - Psychiatric oriented to time, oriented to person, oriented to place - Labs 04/06/17 04:39 04/06/17 04:39 Diabetes panel 04/05/17 04/06/17 Range/Units 21:10 04:39 Sodium 132 L 131 L (136-145) mEq/L Potassium 4.4 4.6 H (3.5-4.5) mEq/L Chloride 103 103 (98-109) mEq/L Carbon Dioxide 15 L 16 L (19-29) mEq/L BUN 23 21 (8-26) mg/dL Creatinine 1.50 H 1.31 H (0.72-1.25) mg/dL Glucose 356 H 347 H (70-99) mg/dL Calcium 8.5 L 8.3 L (8.6-10.8) mg/dL Calcium panel 04/05/17 04/06/17 Range/Units 21:10 04:39 Calcium 8.5 L 8.3 L (8.6-10.8) mg/dL Pituitary panel 04/05/17 04/06/17 Range/Units 21:10 04:39 Sodium 132 L 131 L (136-145) mEq/L Potassium 4.4 4.6 H (3.5-4.5) mEq/L Chloride 103 103 (98-109) mEq/L Carbon Dioxide 15 L 16 L (19-29) mEq/L BUN 23 21 (8-26) mg/dL Creatinine 1.50 H 1.31 H (0.72-1.25) mg/dL Glucose 356 H 347 H (70-99) mg/dL Calcium 8.5 L 8.3 L (8.6-10.8) mg/dL Adrenal panel 04/05/17 04/06/17 Range/Units 21:10 04:39 Sodium 132 L 131 L (136-145) mEq/L Potassium 4.4 4.6 H (3.5-4.5) mEq/L Chloride 103 103 (98-109) mEq/L Carbon Dioxide 15 L 16 L (19-29) mEq/L BUN 23 21 (8-26) mg/dL Creatinine 1.50 H 1.31 H (0.72-1.25) mg/dL Glucose 356 H 347 H (70-99) mg/dL Calcium 8.5 L 8.3 L (8.6-10.8) mg/dL - VTE Documentation of Mechanical Device: Intermittent pneumatic compression device Consult Discharge Plan - Plan Referrals: Bin Morales MD [Primary Care Provider] -
[2017-04-06] MEDS: Gabapentin 300 MG CAPSULE PO SCH (08:22)
[2017-04-06] MEDS: Iron Polysaccharide Complex 150 MG CAPSULE PO SCH (08:22)
[2017-04-06] MEDS: Multivit/Ca/Min/Fe/FA 1 TAB TABLET PO SCH (08:22)
[2017-04-06] MEDS: Metoprolol XL (24 HR) Succ 25 MG TAB.ER.24H PO SCH ×2 (08:22→21:06)
[2017-04-06] MEDS: Isosorbide MONOnitrate (24 HR) 30 MG TAB.ER.24H PO SCH (08:22)
--- NOTE | 2017-04-06 10:17 | Internal Med Progress Note ---
<Karen Lincoln - Last Filed: 04/06/17 10:18> Date of Encounter: 04/06/17 Time of Encounter: 10:15 - Assessment and plan (1) GI bleed Current Visit: Yes Status: Acute Assessment and plan: Patient arrived with recent h/o dark stools Hgb on admission 5.9 Etiology unclear at this time, but possibilities include: variceal bleed, gastric ulcer bleed, portal hypertension, ronnell henriquez tear, etc s/p transfusion 2 units pRBCs Plan: Surgery consult--apreciate recs EGD and colonoscopy today NPO IVF Protonix drip Repeat CBC at 16:00 and morning labs Transfuse as needed Qualifiers: GI bleed type/associated pathology: unspecified gastrointestinal hemorrhage type Qualified Code(s): K92.2 - Gastrointestinal hemorrhage, unspecified (2) LUIS FELIPE (acute kidney injury) Current Visit: Yes Status: Acute Assessment and plan: Likely d/t acute blood loss Plan: IVF Will continue to monitor (3) Diabetes Current Visit: Yes Status: Acute Assessment and plan: On basal and SSI Qualifiers: Diabetes mellitus type: type 2 Diabetes mellitus complication status: with unspecified complications Diabetes mellitus long term acute care registered nurse insulin use: unspecified long term acute care registered nurse insulin use status Qualified Code(s): E11.8 - Type 2 diabetes mellitus with unspecified complications (4) Thrombocytopenia Current Visit: Yes Status: Acute Assessment and plan: Due to cirrhosis Plan: Continue to monitor (5) Anemia Current Visit: Yes Status: Acute Assessment and plan: Likely 2/2 GI bleed Hgb today of 8.3 s/p transfusion 2 units pRBCs Plan: as above Qualifiers: Anemia type: unspecified type Qualified Code(s): D64.9 - Anemia, unspecified (6) Paroxysmal A-fib Current Visit: Yes Status: Acute Assessment and plan: Currently NSR Not on anticoagulation d/t h/o GI bleed Rate controlled Plan: Radha GRECO (7) Cirrhosis of liver Current Visit: Yes Status: Acute Assessment and plan: Cirrhosis d/t alcohol abuse h/o esophageal varices with bleeding Qualifiers: Hepatic cirrhosis type: alcoholic cirrhosis Ascites presence: without ascites Qualified Code(s): K70.30 - Alcoholic cirrhosis of liver without ascites (8) DVT prophylaxis Current Visit: Yes Status: Acute Assessment and plan: EPCD - Subjective Interval history: Patient seen and examined this morning at bedside. He is sitting up in bed, NAD. Patient admits to some nausea. Denies vomiting, chest pain, fever, chills. - Constitutional Vitals: Temp Pulse Resp BP Pulse Ox 98 F 70 14 148/72 100 04/06/17 07:19 04/06/17 07:19 04/06/17 07:19 04/06/17 07:19 04/06/17 07:19 General appearance: Present: A&O X 3, pleasant, no acute distress, answers questions appropriately - Head Head exam: Present: atraumatic, normocephalic - Eye Eye exam: Present: EOMI, conjuntiva pink - Neck Neck exam general surgery: Present: full ROM, supple - Respiratory Respiratory exam: Present: CTAB. Absent: respiratory distress, tachypnea - Cardiovascular Cardiovascular exam: Present: RRR, +S1, +S2. Absent: diastolic murmur, systolic murmur - GI/Abdominal GI/Abdominal exam: Present: distended, normal bowel sounds. Absent: guarding, rebound, rigid, tenderness - Extremities Exam Extremities exam: Present: normal inspection. Absent: cyanotic, pedal edema - Neurological Exam Neurological exam: Present: alert, oriented X3, no focal deficits. Absent: facial droop, speech deficit Internal Medicine: Result - Labs CBC & Chem 7: 04/06/17 04:39 04/06/17 04:39 Labs: Short CBC 04/06/17 Range/Units 04:39 WBC 2.8 L (4.3-11.1) K/mcL Hgb 8.3 L D (12.9-16.9) g/dL Hct 27.7 L (37.5-50.1) % Plt Count 61 L (140-400) K/mcL Neutrophils # 1.4 L (1.6-8.9) K/mcL BMP 04/05/17 04/06/17 21:10 04:39 Sodium 132 L 131 L Potassium 4.4 4.6 H Chloride 103 103 Carbon Dioxide 15 L 16 L BUN 23 21 Creatinine 1.50 H 1.31 H Glucose 356 H 347 H Calcium 8.5 L 8.3 L Cardiac Enzymes 04/05/17 04/06/17 Range/Units 21:10 04:39 Troponin I 0.03 0.02 (0-0.03) ng/mL - ABG Interpretation ABG results: PT/INR, D-dimer PT 13.7 Seconds (9.4-12.1) H 04/05/17 15:13 - VTE Documentation of Mechanical Device: Intermittent pneumatic compression device Consult Discharge Plan - Plan Referrals: Bin Morales MD [Primary Care Provider] - <Lucien Britt Myles - Last Filed: 04/06/17 18:37> Date of Encounter: 04/06/17 - Assessment and plan (1) Melena Current Visit: Yes Status: Acute (2) Esophageal varices in cirrhosis Current Visit: Yes Status: Acute (3) Anemia Current Visit: Yes Status: Acute Qualifiers: Anemia type: other cause Other causes of anemia: acute posthemorrhagic Qualified Code(s): D62 - Acute posthemorrhagic anemia (4) Diabetes Current Visit: Yes Status: Acute Qualifiers: Diabetes mellitus type: type 2 Diabetes mellitus complication status: with unspecified complications Diabetes mellitus long term acute care registered nurse insulin use: without retirement use Qualified Code(s): E11.8 - Type 2 diabetes mellitus with unspecified complications (5) Paroxysmal A-fib Current Visit: Yes Status: Acute - Constitutional Vitals: Temp Pulse Resp BP Pulse Ox 97.8 F 67 18 106/85 100 04/06/17 16:55 04/06/17 16:55 04/06/17 16:55 04/06/17 16:55 04/06/17 16:55 Internal Medicine: Result - Labs CBC & Chem 7: 04/06/17 04:39 04/06/17 04:39 Labs: Short CBC 04/06/17 Range/Units 04:39 WBC 2.8 L (4.3-11.1) K/mcL Hgb 8.3 L D (12.9-16.9) g/dL Hct 27.7 L (37.5-50.1) % Plt Count 61 L (140-400) K/mcL Neutrophils # 1.4 L (1.6-8.9) K/mcL BMP 04/05/17 04/06/17 21:10 04:39 Sodium 132 L 131 L Potassium 4.4 4.6 H Chloride 103 103 Carbon Dioxide 15 L 16 L BUN 23 21 Creatinine 1.50 H 1.31 H Glucose 356 H 347 H Calcium 8.5 L 8.3 L Cardiac Enzymes 04/05/17 04/06/17 04/06/17 Range/Units 21:10 04:39 10:10 Troponin I 0.03 0.02 0.01 (0-0.03) ng/mL - ABG Interpretation ABG results: PT/INR, D-dimer PT 13.7 Seconds (9.4-12.1) H 04/05/17 15:13 - Attending Attestation I examined this patient and my medical decision-making was reviewed with the Resident Physician on 04/06/17. I agree with the documented findings, disposition and treatment plan as described except to the extent set forth below. Mr Mejia is currently admitted for acute GI bleed and anemia. He remains moderate to high risk due to potential for worsening clinical status. Mr Mejia is to have EGD and colonoscopy today. He has had no further bleeding noted. No CP or SOB. Received blood. No fever or chills. Exam Alert. Comfortable. Mucus membranes dry Heart reg Lungs clear Abd soft I/P 1. Acute UGI bleed 2. Anemia Further diagnoses and plan as above.
[2017-04-06] MEDS ORDERED: *HR* Midazolam HCl 5 MG/5 ML VIAL IVP ONE (15:35)
[2017-04-06] MEDS ORDERED: *HR* FentaNYL (PF) 100 MCG/2 ML VIAL ONE (15:35)
[2017-04-06] MEDS ORDERED: 0.9 % Sodium Chloride 1,000 ML IVC SCH (15:45)
[2017-04-06] MEDS: Insulin Human Regular 100 UNIT in 0.9 % Sodium Chloride 100 ML IVC SCH (18:32)
[2017-04-06] MEDS: Thiamine (B-1) 100 MG, Folic Acid 1 MG, MVI, adult with vitamin K 10 ML in 0.9 % Sodi... IVPB SCH (18:35)
--- NOTE | 2017-04-06 18:41 | Electrocardiograph Report ---
[place] [id number] Test Date: 2017-04-05 Pat Name: Mukesh Mejia Department: 102 Room: 2N04 Gender: M House Father: Ekp : 1960 Requested By: Reid Fierro Order Number: [id number] Reading MD: Chidi Lin DO Measurements Intervals [place] Rate: 84 P: 35 MT: 143 QRS: -2 QRSD: 91 T: 24 QT: 371 QTc: 413 Interpretive Statements SINUS RHYTHM NONSPECIFIC T-WAVE ABNORMALITY Electronically Signed On 04-06-2017 18:39:06 EST by Chidi Lin DO
[2017-04-06] MEDS ORDERED: Insulin LISPRO 300 UNITS/3 ML VIAL SQ SCH (21:00)
[2017-04-07 05:34] LABS: Basophils % 0.3 %; Immature Granulocytes % 0.3 % (0-4); Mean Corpuscular Hemoglobin 27.6 pg (28.0-33.3); Red Cell Distribution Width 18.2 % (11.5-14.5)
[2017-04-07 05:35] LABS: Eosinophils % 1.3 %; Hematocrit 23.7 % (37.5-50.1); Hemoglobin 7.4 g/dL (12.9-16.9); Immature Platelets 7.5 % (1.1-6.1); Lymphocytes # 0.9 K/mcL (0.6-4.6); Lymphocytes % 29.4 %; Mean Corpuscular HGB Conc 31.2 g/dL (31.6-35.5); Mean Corpuscular Volume 88.4 fL (83.0-100.0); Mean Platelet Volume 12.1 fL (9.4-12.4); Monocytes # 0.3 K/mcL (0.0-1.3); Monocytes % 10.9 %; Neutrophils # 1.8 K/mcL (1.6-8.9); Red Blood Count 2.68 M/mcL (4.19-5.50); Segmented Neutrophils % 57.8 %
[2017-04-07 05:38] LABS: Platelet Count 60 K/mcL (140-400)
[2017-04-07 05:49] LABS: BUN/Creatinine Ratio 13 (6-26); Blood Urea Nitrogen 15 mg/dL (8-26); Carbon Dioxide 21 mEq/L (19-29); Chloride 108 mEq/L (98-109); Glucose 244 mg/dL (70-99); Osmolality,Calculated 291 (280-300); Potassium 4.5 mEq/L (3.5-4.5); Sodium 136 mEq/L (136-145); eGFR For African Americans > 60 (> 60); eGFR For Non-African Americans > 60 (> 60)
[2017-04-07] MEDS: Insulin LISPRO 300 UNITS/3 ML VIAL SQ SCH ×2 (08:28→13:01)
[2017-04-07] MEDS: Gabapentin 300 MG CAPSULE PO SCH (08:29)
[2017-04-07] MEDS: Isosorbide MONOnitrate (24 HR) 30 MG TAB.ER.24H PO SCH (08:29)
[2017-04-07] MEDS: Metoprolol XL (24 HR) Succ 25 MG TAB.ER.24H PO SCH (08:30)
[2017-04-07] MEDS: Multivit/Ca/Min/Fe/FA 1 TAB TABLET PO SCH (08:30)
[2017-04-07] MEDS: Iron Polysaccharide Complex 150 MG CAPSULE PO SCH (08:30)
[2017-04-07 11:54] VITALS: BP 117/92
[2017-04-07 12:25] LABS: Eosinophils % 1.4 %; Hemoglobin 7.8 g/dL (12.9-16.9); Immature Granulocytes % 0.3 % (0-4); Red Cell Distribution Width 18.2 % (11.5-14.5)
[2017-04-07 12:27] LABS: Basophils % 0.6 %; Eosinophils # 0.1 K/mcL (0.0-0.6); Hematocrit 25.2 % (37.5-50.1); Immature Platelets 7.7 % (1.1-6.1); Lymphocytes # 0.9 K/mcL (0.6-4.6); Lymphocytes % 25.1 %; Mean Corpuscular Hemoglobin 27.6 pg (28.0-33.3); Mean Platelet Volume 11.3 fL (9.4-12.4); Monocytes # 0.4 K/mcL (0.0-1.3); Monocytes % 12.1 %; Neutrophils # 2.1 K/mcL (1.6-8.9); Red Blood Count 2.83 M/mcL (4.19-5.50); Segmented Neutrophils % 60.5 %
[2017-04-07 12:33] LABS: Platelet Count 59 K/mcL (140-400)
--- NOTE | 2017-04-07 13:20 | Discharge Summary ---
<Karen Lincoln - Last Filed: 04/07/17 13:54> Date of Encounter: 04/07/17 Time of Encounter: 13:18 - Discharge Diagnosis (1) GI bleed Priority: Primary Status: Acute Qualifiers: GI bleed type/associated pathology: unspecified gastrointestinal hemorrhage type Qualified Code(s): K92.2 - Gastrointestinal hemorrhage, unspecified (2) LUIS FELIPE (acute kidney injury) Priority: Secondary Status: Resolved (3) Diabetes Priority: Secondary Status: Chronic Qualifiers: Diabetes mellitus type: type 2 Diabetes mellitus complication status: with unspecified complications Diabetes mellitus assisted insulin use: without assisted use Qualified Code(s): E11.8 - Type 2 diabetes mellitus with unspecified complications (4) Thrombocytopenia Priority: Secondary Status: Chronic (5) Anemia Priority: Secondary Status: Acute Qualifiers: Anemia type: other cause Other causes of anemia: acute posthemorrhagic Qualified Code(s): D62 - Acute posthemorrhagic anemia (6) Paroxysmal A-fib Priority: Secondary Status: Chronic (7) Cirrhosis of liver Priority: Secondary Status: Chronic Qualifiers: Hepatic cirrhosis type: alcoholic cirrhosis Ascites presence: without ascites Qualified Code(s): K70.30 - Alcoholic cirrhosis of liver without ascites (8) DVT prophylaxis Priority: Secondary Status: Acute - Discharge Medications Prescriptions: Iron Polysaccharide Complex [Ferrex 150] 150 mg PO DAILY #30 capsule Home Medications: Buspirone HCl [Buspar] 15 mg PO DAILY 09/15/15 [History] Cyclobenzaprine HCl 5 mg PO BID 09/15/15 [History] Gabapentin [Neurontin] 300 mg PO DAILY 09/15/15 [History] Insulin Glargine,Hum.rec.anlog [Toujeo Solostar] 30 units SQ BID 09/15/15 [ History] Lisinopril [Zestril] 40 mg PO BID 09/15/15 [History] Multivitamin [Multi-Day Vitamins] 1 tab PO DAILY 09/15/15 [History] Omeprazole 20 mg PO DAILY 09/15/15 [History] Simvastatin [Zocor] 20 mg PO HS 09/15/15 [History] amLODIPine [Norvasc] 5 mg PO DAILY 09/15/15 [History] Isosorbide MONOnitrate (24 HR) [Imdur] 15 mg PO DAILY 12/29/15 [History] Metoprolol XL (24 HR) Succ [Toprol Xl] 25 mg PO BID 12/29/15 [History] Furosemide [Lasix] 40 mg PO DAILY 04/05/17 [History] Insulin Glargine [Lantus] 75 unit SQ HS 04/05/17 [History] Iron Polysaccharide Complex [Ferrex 150] 150 mg PO DAILY #30 capsule 04/07/17 [ Rx] Allergies/Adverse Reactions: 3 Allergy/AdvReac Type Severity Reaction Status Date / Time No Known Allergies Allergy Verified 04/05/17 14:25 Date of admission: 04/05/17 19:55 Primary care physician: Bin Morales MD Consults: 04/05/17 Surgery consulted Discharging clinician: Karen Lincoln Anticipated date of discharge: 04/07/17 - Patient Status Disposition: Home, Self-Care Condition: Good Functional capacity at discharge: independent ambulation Overall status at discharge: patient is progressing back to baseline - Ambulatory Orders Ambulatory Orders: Complete Blood Count [HEME] Time Frame: 3 Days, Facility: [facility], Location: Lab - Discharge Instructions Follow Up With: Bin Morales MD [Primary Care Provider] - 04/13/17 1:45 pm (With CLINICAL UNIT COORDINATOR) [facility] [Provider Group] Additional Instructions: Take all medications as prescribed. Have labwork drawn within 3 days of discharge. Follow up with your PCP within 1 week of discharge. Follow up with GI as an outpatient. Visit emergency department if your symptoms return. - Diet and Activity Activity: increase activity as tolerated, resume usual activities as tolerated Diet: diabetic diet, low fat, low cholesterol, low salt diet Interval History: Patient seen and examined this morning at bedside, he is feeling well. He feels ready to go home. He has no complaints at time of exam. Denies fever, chills, nausea, vomiting, chest pain, shortness of breath, abdominal pain. Hospital course: Mr. Mejia is a 57 year old male - Time Spent with Patient Total time spent providing and/or coordinating discharge services: - Constitutional Vitals: Temp Pulse Resp BP Pulse Ox 97.8 F 71 15 117/92 98 04/07/17 11:47 04/07/17 11:47 04/07/17 11:47 04/07/17 11:47 12/08/17 11:47 General appearance: Present: A&O X 3, pleasant, no acute distress, answers questions appropriately - Head Head exam: Present: atraumatic, normocephalic - Eye Eye exam: Present: EOMI, normal appearance - Neck Neck exam general surgery: Present: full ROM, supple - Respiratory Respiratory exam: Present: CTAB. Absent: rales, rhonchi, wheezes, tachypnea - Cardiovascular Cardiovascular exam: Present: RRR, +S1, +S2. Absent: diastolic murmur, systolic murmur - GI/Abdominal GI/Abdominal exam: Present: distended, normal bowel sounds. Absent: guarding, rebound, tenderness - Extremities Exam Extremities exam: Present: full ROM - Neurological Exam Neurological exam: Present: alert, oriented X3, no focal deficits - VTE Documentation of Mechanical Device: Intermittent pneumatic compression device <Lucien Britt - Last Filed: 04/07/17 14:51> Date of Encounter: 04/07/17 - Discharge Diagnosis (1) Melena Priority: Primary Status: Acute (2) Esophageal varices in cirrhosis Priority: Secondary Status: Acute (3) Alcoholic cirrhosis Priority: Secondary Status: Chronic Qualifiers: Ascites presence: without ascites Qualified Code(s): K70.30 - Alcoholic cirrhosis of liver without ascites (4) Anemia Status: Acute Qualifiers: Anemia type: other cause Other causes of anemia: acute posthemorrhagic Qualified Code(s): D62 - Acute posthemorrhagic anemia (5) Diabetes Status: Chronic Qualifiers: Diabetes mellitus type: type 2 Diabetes mellitus complication status: with unspecified complications Diabetes mellitus terminal gauger supervisor insulin use: without terminal gauger supervisor use Qualified Code(s): E11.8 - Type 2 diabetes mellitus with unspecified complications (6) Paroxysmal A-fib Status: Chronic (7) Thrombocytopenia Status: Chronic Date of admission: 04/05/17 19:55 Primary care physician: Bin Morales MD Hospital course: Mr. Mejia is a 57 year old male with hx of alcoholic cirrhosis with varices who presented to ED with acute GI bleed presumed to be variceal. He was evaluated and admitted. Mr Mejia was admitted to [facility]. He needed blood transfusion and improved H/ H following transfusion. He was evaluated by surgery and had EGD/colonscopy on 04/06/2017 which did not show any active bleeding. He returned to floor and was monitored overnight. In the morning of 04/07 his H/H was still low. He was asymptomatic. Recheck later in the day did not show any worsening and at that time he was felt stable for discharge home. - Time Spent with Patient Total time spent providing and/or coordinating discharge services: 37min - Constitutional Vitals: Temp Pulse Resp BP Pulse Ox 97.8 F 71 15 117/92 98 04/07/17 11:47 04/07/17 11:47 04/07/17 11:47 04/07/17 11:47 04/07/17 11:47 - Attending Attestation I examined this patient and my medical decision-making was reviewed with the Resident Physician on 04/07/17. I agree with the documented findings, disposition and treatment plan as described except to the extent set forth below. Mr Mejia has been admitted for acute GI bleed related to varices. He received blood transfusion. He underwent EGD and colonoscopy and no active bleeding was noted. Today his H/H is stable. He is afebrile with stable vitals. At this time he is ready for discharge home. Exam Alert. Comfortable Mucus membranes dry Heart reg No wheeze Abd soft and nontender Plan D/C home today with outpatient follow up.
== END 2017-04-07 16:01 | disposition home or self-care (01) | DRG 378 ==
LOC: EMEROO 14:20 → 2NNU 14:20
PROVIDERS: ADMIT Internal Medicine; ATTEND Internal Medicine